=== PATIENT | female | born 1965 | race Caucasian/White ===

== ENCOUNTER 2016-10-23 20:16 | Emergency (ER) | payer BC ==
[~2016-10-23] VITALS: Ht 172.7 cm; Wt 74.8 kg
--- NOTE | 2016-10-23 20:30 | NUR ---
Found pt in room 1B for headache and diarrhea.Alert and conversational. [place] have to stopped by to restroom and experience this problem.Pt is with daughter and who are now at the bedside.Seen by MD.Labs drawn.
--- NOTE | 2016-10-23 20:40 | NUR ---
Left for CT.
[2016-10-23] MEDS ORDERED: PROCHLORPERAZINE EDISYLATE 10 MG/2 ML VIAL IV ONE (20:45)
[2016-10-23] MEDS ORDERED: MORPHINE SULFATE 2 MG/1 ML DISP.SYRIN IV ONE (20:45)
[2016-10-23] MEDS ORDERED: IV NORMAL SALINE 1000 ML BAG IV ONE (20:45)
[2016-10-23] MEDS ORDERED: diphenhydrAMINE 50 MG/1 ML VIAL IV ONE (20:45)
--- NOTE | 2016-10-23 20:54 | NUR ---
Back from CT.
--- NOTE | 2016-10-23 21:05 | NUR ---
Assisted to restroom.BP from 170's down to 130's (SBP)/70.
[2016-10-23] MEDS ORDERED: MORPHINE SULFATE 4 MG/1 ML DISP.SYRIN ONE (21:12)
[2016-10-23] MEDS ORDERED: diphenhydrAMINE 50 MG/1 ML VIAL ONE (21:12)
[2016-10-23] MEDS ORDERED: PROCHLORPERAZINE EDISYLATE 10 MG/2 ML VIAL ONE (21:12)
--- NOTE | 2016-10-23 21:45 | NUR ---
Meds given as prescribed: Banadryl, Prochlorperazine and Morphine. Addendum: 10/23/16 at 2 by JARADELAFUENT [id number]: Meds given as prescribed.
[2016-10-23 21:55] LABS: *URINE HCG, QUAL NEGATIVE (NEGATIVE)
--- NOTE | 2016-10-23 22:10 | NUR ---
Patient discharged to home in stable conditon. Written and verbal after care instructions given. Patient verbalizes understanding of instructions.
[2016-10-23 22:30] VITALS: BP 122/70
[2016-10-24] MEDS ORDERED: METOCLOPRAMIDE HCL 10 MG/2 ML VIAL ONE (06:06)
== END 2016-10-23 22:10 | disposition home or self-care (01) ==
LOC: ER 20:17
DX: R51 Headache (principal); R11.0 Nausea; R19.7 Diarrhea, unspecified; I10 Essential (primary) hypertension
CPT/HCPCS: 70450; 84703; A4663; J0780; J1200; J2270; J2765; J7030